=== PATIENT | male | born 1990 | race Hispanic/Latino ===

== ENCOUNTER 2020-08-24 13:13 | Outpatient (CLI) | payer OTHER, SELFPAY ==
--- NOTE | ~2020-08-24 | XR_ITS ---
XR pelvis 1-2V DATE: 08/24/2020 13:54 INDICATION: Pelvic pain, mainly on the right TECHNIQUE: AP pelvis views with neutral and frog lateral position COMPARISON: None FINDINGS: No pelvic fracture or bone destruction. The pubic symphysis and sacroiliac joints are intac t. No fracture or dislocation, avascular necrosis or bone destruction at either hip. IMPRESSION: No significant abnormality Reviewed, dictated and finalized at location A. IMPRESSION: No significant abnormality
== END 2020-08-24 13:14 ==
PROVIDERS: Visit Provider Chiropractor
DX: R10.2 Pelvic and perineal pain (principal)
CPT/HCPCS: 72170

== ENCOUNTER 2022-10-29 10:41 | Emergency (ER) | payer OTHER, SELFPAY ==
[2022-10-29 10:56] VITALS: BP 138/87; PULSE 76; RESP 16; TEMP 36.9; O2SAT 100
--- NOTE | 2022-10-29 12:18 | ED.DENTAL ---
HPI - Dental/Oral General Chief complaint: Dental/Oral Stated complaint: Dental pain Time Seen by Provider: 10/29/22 10:46 History of Present Illness HPI Narrative: 32-year-old male present emergency department for evaluation of left lower dental pain. Patient reports symptoms have been ongoing for the last week but acutely worsened last night. Patient has been taking [id number] ibuprofen. Patient did take ibuprofen PM last night. Patient does have follow-up with a dentist scheduled for Sunday. Patient denies any current chest pain or shortness of breath. Related Data Allergies Allergy/AdvReac Type Severity Reaction Status Date / Time No Known Allergies Allergy Unverified 10/29/22 11:03 Review of Systems Review of Systems: All systems reviewed & are unremarkable except as noted in HPI and below Exam Narrative: APPEARANCE: Well appearing, no pain, no distress, well-nourished. HEAD: normocephalic, no significant facial swelling. EYES: PERRLA/EOMI, conjunctivae clear. NOSE: Normal no drainage EARS:TMS clear with good light reflex. Mouth: Possible impacted wisdom tooth, no abscess amenable to drainage, irritation of the gums THROAT: Pharynx clear, no exudate. NECK: Supple. No adenopathy, no masses. RESPIRATORY: Airway patent, respirations nonlabored. Clear to auscultation bilaterally, no rales, rhonchi, wheezing. CARDIOVASCULAR: Regular rate and rhythm without murmurs rubs or gallops. SKIN: Warm, dry. Normal Color Course Course Emergency Course: 32-year-old male presented ED for evaluation of worsening dental pain. Patient denies having any medication allergies. Patient was given [place] in the ED and started on antibiotics in the ED. Vital Signs Vital signs: Vital Signs Temperature 98.4 F 10/29/22 10:56 Pulse Rate 76 10/29/22 10:56 Respiratory Rate 16 10/29/22 10:56 Blood Pressure 138/87 10/29/22 10:56 Pulse Oximetry 100 10/29/22 10:56 Oxygen Delivery Room Air 10/29/22 10:56 Temperature 98.4 F 10/29/22 10:56 Pulse Rate 76 10/29/22 10:56 Respiratory Rate 16 10/29/22 10:56 Blood Pressure 138/87 10/29/22 10:56 Pulse Oximetry 100 10/29/22 10:56 Oxygen Delivery Room Air 10/29/22 10:56 MDM - Dental/Oral Differential Diagnosis Differential diagnosis: Likely gingival abscess, dental caries, dental abscess and fracture of tooth Discharge Plan Discharge Clinical Impression: Toothache Patient Disposition: Home, Self-Care Condition: Stable Instructions: Antibiotic Form, Toothache (ED) Additional Instructions: Antibiotic as directed until completed. Ibuprofen for pain control. [place] as needed for additional pain control. Have close follow-up with your dentist as scheduled. Prescriptions: New amoxicillin-pot clavulanate 875-125 mg tablet 1 tablet PO Q12H Qty: 14 0RF hydrocodone-acetaminophen 5-325 mg tablet 1 tablet PO Q12H PRN (Reason: pain) Qty: 10 0RF Follow-up/Referrals: PHYSICIAN,DRAPERY ESTIMATOR [Primary Care Provider] -
[2022-10-29] MEDS: AMOXICILLIN/CLAVULANATE K 875-125 MG TAB 1 TABLET PO (12:31)
[2022-10-29] MEDS: HYDROcodone/acetaminophen (*CRX) 5-325 MG TABLET 1 TAB PO (12:31)
== END 2022-10-29 12:37 | disposition home or self-care (01) ==
PROVIDERS: Emergency Provider Emergency Medicine
DX: K08.89 Other specified disorders of teeth and supporting structures (principal)
CPT/HCPCS: 99283; A9270